=== PATIENT | female | born 1985 ===

== ENCOUNTER 2024-12-07 07:00 | Day surgery (SDC) | payer OTHER ==
[2024-12-07] MEDS ORDERED: ONDANSETRON HCL 2 MG/ML VIAL IV ONE (08:45)
[2024-12-07] MEDS ORDERED: DIPHENHYDRAMINE HCL 50 MG/ML VIAL 1ML IV ONE (08:45)
[2024-12-07] MEDS ORDERED: MIDAZOLAM HCL 2 MG/2 ML VIAL IV ONE (08:45)
[2024-12-07] MEDS ORDERED: fentaNYL CITRATE 50 MCG/ML AMPUL IV PUSH ONE (08:45)
== END 2024-12-07 10:10 | disposition home or self-care (01) ==
LOC: AMB-ENDOS 07:00
PROVIDERS: ATTEND Colon & Rectal Surgery
DX: K62.5 Hemorrhage of anus and rectum (principal); K63.5 Polyp of colon; K62.1 Rectal polyp